=== PATIENT | female | born 1990 | race Caucasian/White ===

== ENCOUNTER 2017-11-08 16:00 | Outpatient (RCR) | payer BC | END 2017-11-12 | LOC: OT 16:00 | PROVIDERS: ATTEND Specialist | DX: S52.102D Unspecified fracture of upper end of left radius, subsequent encounter for closed fracture with routine healing (principal); M25.522 Pain in left elbow; M25.622 Stiffness of left elbow, not elsewhere classified; M25.632 Stiffness of left wrist, not elsewhere classified; R53.1 Weakness ==